=== PATIENT | female | born 1985 | race Asian ===

== ENCOUNTER 2020-05-22 10:10 | Emergency (ER) | payer OTHER, SELFPAY ==
[2020-05-22] VITALS (9 sets, daily range): BP systolic 101–116; BP diastolic 56–69; PULSE 55–68; RESP 16; TEMP 36.4; O2SAT 93–100; BMI 30.9
[2020-05-22] MEDS: ONDANSETRON 4 MG/2 ML INJ IV (10:46)
--- NOTE | 2020-05-22 10:55 | PC.NURSE ---
Patient reports severe dizziness with any movement of head and eyes. Reports heaviness on right side of head with ringing in right ear. Reports decrease hearing in right ear. Has had intermittent dizziness since march.
[2020-05-22] MEDS: SODIUM CHLORIDE 0.9% 1,000 ML 1000 ML IV (11:02)
--- NOTE | 2020-05-22 11:02 | ED_ITS ---
HPI - Nausea/Vomiting/Diarrhea General Chief complaint: Nausea/Vomiting/Diarrhea Stated complaint: Nausea/Vomiting Time Seen by Provider: 05/22/20 10:49 Source: patient and EMS Mode of arrival: Ambulatory History of Present Illness HPI Narrative: Patient complains of episodic right-sided heaviness and dizziness with vomiting and decreased hearing on the right side since April 15 status [place] or 4 episodes. Had another 1 today. Headache off and on since the surgery. Patient denies any medical problems heart attack stroke diabetes. No migraine headaches. No allergies medications. Has not seen a specialist for this right side head heaviness. Denies any weakness or numbness to the body. No slurred speech or facial droop. Patient states he has had more stress recently Related Data Previous Rx's Medication Instructions Recorded meclizine 25 mg PO TID PRN #20 tab 05/22/20 ondansetron 4 mg PO Q6H PRN #10 tab 05/22/20 Allergies Allergy/AdvReac Type Severity Reaction Status Date / Time No Known Drug Allergies Allergy Verified 05/22/20 10:17 Review of Systems Review of Systems Narrative: GENERAL: Denies chills, fatigue, malaise, fever, sweats. HEENT: Denies sinus pain, ear pain, sore throat, difficulty swallowing, dizziness. RESPIRATORY: Denies dyspnea, cough, wheezing, hemoptysis, sputum. CARDIOVASCULAR: Denies chest pain, palpitations, orthopnea, edema, GASTROINTESTINAL: Denies abdominal pain, diarrhea, constipation, melena. Has nausea and vomiting : Denies dysuria, frequency, incontinence, hematuria, urinary retention. MUSCULOSKELETAL: denies weakness, joint pain, or bony pain SKIN: Denies rash, skin lesions, or other NEUROLOGIC: Denies weakness, numbness, change in speech, confusion, seizures, incoordination. Has right-sided head pressure and decreased right-sided hearing PSYCHIATRIC: No concerning psychosocial issues. ROS Unobtainable: All systems reviewed & are unremarkable except as noted in HPI and below Patient History Social History Smoking Status: Never smoker Smoking Status: Never smoker Substance Use Type: does not use Exam Narrative Exam Narrative: GENERAL: patient appears stated age. Well-nourished, well-developed patient, in no distress, not toxic HEAD: Atraumatic. Normocephalic. EYES: Pupils equal round and reactive. Extraocular motions intact. No scleral icterus. No injection or drainage. ENT: Nose without bleeding, purulent drainage. Throat without erythema, tonsillar hypertrophy or exudate. Airway patent. TMs are clear. No effusion no erythema no discharge. No perforation NECK: Trachea midline. Non tender CARDIOVASCULAR: Regular rate and rhythm without murmurs, gallops, or rubs. RESPIRATORY: Clear to auscultation. Breath sounds equal bilaterally. No wheezes, rales, or rhonchi. GASTROINTESTINAL: Abdomen soft, non-tender, nondistended. EXTREMITIES: No edema or joint tenderness. BACK: Nontender without deformity or crepitance. No flank tenderness. NEURO: AOx4.. 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 Hearing intact equally left and right side isolated ears with hearing 99 and finger rubbing SKIN: No rash or erythema of visible areas PSYCH: Not anxious, is cooperative Initial Vital Signs Initial Vital Signs: Vital Signs Temperature 97.6 F 05/22/20 10:18 Pulse Rate 66 05/22/20 10:18 Respiratory Rate 16 05/22/20 10:18 Blood Pressure 113/56 L 05/22/20 10:18 Pulse Oximetry 95 05/22/20 10:18 Course Course Course Narrative: Patient has improved with IV fluids and nausea medication and meclizine. at bedside. They desire discharge home Orders Ordered: ED Orders 05/22/20 10:14 Complete Blood Count AUTO DIFF Stat Comprehensive Metabolic Panel Stat 05/22/20 11:08 CT head/brain wo con Stat 05/22/20 13:53 CT angio head and neck Stat Discontinued Medications Sodium Chloride (Normal Saline 0.9%) 1,000 mls @ 1,000 mls/hr IV BOLUS ONE Stop: 05/22/20 11:57 Last Infusion: 05/22/20 12:15 Dose: 0 mls/hr Documented by: Admin: 05/22/20 11:02 Dose: 1,000 mls/hr Documented by: RMARTIN Ketorolac Tromethamine (Toradol) 15 mg IV NOW ONE Stop: 05/22/20 14:53 Last Admin: 05/22/20 14:59 Dose: Not Given Documented by: KBROTEM Meclizine HCl (Antivert) 25 mg PO NOW ONE Stop: 05/22/20 12:50 Last Admin: 05/22/20 12:54 Dose: 25 mg Documented by: KACY Ondansetron HCl (Zofran) 4 mg IV NOW ONE Stop: 05/22/20 10:20 Last Admin: 05/22/20 10:46 Dose: 4 mg Documented by: KACY Reevaluation(s) Reevaluation #1: at bedside now. Patient feels much better after Zofran IV fluids and meclizine. Ambulating in hallway much better and feels much better. No dizziness no nausea or vomiting. Still has heaviness on right-sided head sensation. CT scan angiogram of the head and neck are ordered Time: 13:49 Reevaluation #2: Patient does not want oral detailed her headache/head pressure Time: 15:03 Vital Signs Vital signs: Vital Signs - 8 hr 05/22/20 11:30 05/22/20 12:08 05/22/20 12:30 Pulse Rate 56 L 56 L 58 L Respiratory Rate 16 16 Blood Pressure 109/68 109/64 108/65 Pulse Oximetry 98 100 99 05/22/20 13:00 05/22/20 13:30 05/22/20 14:00 Pulse Rate 67 55 L 61 Respiratory Rate Blood Pressure Pulse Oximetry 93 97 98 05/22/20 15:03 Pulse Rate 68 Respiratory Rate Blood Pressure 116/69 Pulse Oximetry 100 MDM - Nausea/Vomiting/Diarrhea Differential Diagnosis Differential diagnosis: Likely other (Tension headache/vertigo) Lab Data Attestation: I reviewed the patient's lab results. Result diagrams: 05/22/20 10:14 05/22/20 10:14 Labs: Lab Results 05/22/20 05/22/20 Range/Units 10:14 10:14 WBC 7.7 (4.5-11.0) X10^3/uL RBC 4.22 (4.0-5.2) X10^6/uL Hgb 12.4 (12.0-16.0) g/dL Hct 37.4 (36-46) % MCV 88.6 (80-100) fL MCH 29.5 (26-34) PG MCHC 33.3 (30-36) % RDW 13.7 (11.6-14.8) % Plt Count 263 (150-400) X10^3/uL Neut % (Auto) 66.6 (50-75) % Lymph % (Auto) 26.1 (25-40) % [place] % (Auto) 6.0 (3-14) % Eos % (Auto) 1.0 L (2-4) % Baso % (Auto) 0.3 (0-2) % Neut # (Auto) 5100 (4867-6898) /uL Lymph # (Auto) 2000 (7022-8103) /uL [place] # (Auto) 500 (0-900) /uL Eos # (Auto) 100 (0-450) /uL Baso # (Auto) 0 (0-100) /uL Sodium 136 L (137-145) mmol/L Potassium 4.5 (3.4-5.1) mmol/L Chloride 106 (98-107) mmol/L Carbon Dioxide 22 (22-32) mmol/L BUN 15 (7-17) mg/dL Creatinine 0.66 (0.52-1.04) mg/dL Estimated GFR > 60.0 (>60) mL/min BUN/Creatinine Ratio 22.7 H (6-22) Glucose 107 H (70-100) mg/dL Calcium 9.4 (8.4-10.2) mg/dL Total Bilirubin 0.7 (0.2-1.3) mg/dL AST 45 H (14-36) IU/L ALT 18 (<35) IU/L Alkaline Phosphatase 67 (38-126) U/L Total Protein 7.8 (6.3-8.2) g/dL Albumin 4.4 (3.5-5.0) g/dL Globulin 3.4 (1.7-4.1) g/dL Albumin/Globulin Ratio 1.3 (1.0-2.8) Point of Care Testing Test Results Negative Urine Dip Bedside Urine Glucose Negative Bedside Urine Bilirubin - Negative Bedside Urine Ketone - Negative Urine Specific [place] 1.020 Bedside Urine Occult Blood +++ Bedside Urine pH 6.5 Bedside Urine Protein + 30 Bedside Urine Urobilinogen - Negative Bedside Urine Nitrite - Negative Bedside Urine Leukocytes - Negative Esterase Imaging Data CT scan - head: Radiologist's Impression: [address] [address] [address] Scan Report Signed Patient: Roberth Casper#: [id number] : 1985Acct:[id number] Age/Sex: 34 / FDate of Service: 05/22/20 Loc: ED Accession Number: [id number] Procedure: CT head/brain wo con Ordering Provider: Joaquin Goel MD PROCEDURE: CT HEAD/BRAIN WO CON INDICATIONS: Dizzy/vomiting TECHNIQUE: Noncontrast 4.5 mm thick angled axial sections acquired from the foramen magnum to the vertex, with coronal and sagittal reformats. For radiation dose reduction, the following was used: automated exposure control, adjustment of mA and/or kV according to patient size. COMPARISON: None. FINDINGS: Image quality: Excellent. CSF spaces: Basal cisterns are patent. No extra-axial fluid collections. Andrés tricles are normal in size and shape. Brain: No midline shift. No intracranial masses or hemorrhage. Cheng-white matter interface is normal. Skull and face: Calvarium and visualized facial bones are intact, without suspicious lesions. Sinuses: Visualized sinuses and mastoids are clear. IMPRESSION: No CT evidence of acute intracranial pathology. Dictated by: Charly Casper M.D. on 05/22/2020 at 11:24 Approved by: Charly Casper M.D. on 05/22/2020 at 11:24 CTA head and neck: Radiologist's Impression: [address] [address] [address] Scan Report Signed Patient: Roberth Casper#: [id number] : 1985Acct:[id number] Age/Sex: 34 / FDate of Service: 05/22/20 Loc: ED Accession Number: [id number] Procedure: CT angio head and neck Ordering Provider: Joaquin Goel MD PROCEDURE: CT ANGIO HEAD AND NECK INDICATIONS: Right-sided head pain/dizzy TECHNIQUE: Pre-contrast 4.5 mm thick sections acquired from the foramen magnum to the vertex. After the administration of intravenous contrast, 1 mm thick sections acquired from the aortic arch through the [place] of [place]. Post-contrast 4.5 mm thick sections then re- acquired from the foramen magnum to the vertex. 3-dimensional ldrhhrz-slktjspsi-umceyhhlpg (MIP) and/or volume rendering reformats were acquired of the central intracranial vasculature and neck separately. COMPARISON: [facility], CT, CT HEAD/BRAIN WO CON, 05/22/2020, 10:57. FINDINGS: Image quality: Excellent. BRAIN: CSF spaces: Ventricles are normal in size and shape. Basal cisterns are patent. No extra-axial fluid collections. Brain: No midline shift. No intracranial bleeds or masses. Cheng-white matter interface appears intact. Skull and face: Calvarium and facial bones appear intact, without suspicious l esions. Orbits appear normal. Sinuses: Sinuses and mastoids are clear. HEAD CT ANGIOGRAPHY: Anterior circulation: Intracranial internal carotid arteries are normal in size and flow. The flow within the paired anterior cerebral arteries is normal and symmetric. The flow within the middle cerebral arteries is normal and symmetric. The anterior communicating artery is seen. No aneurysms are seen. Posterior circulation: Visualized portions of the vertebral arteries demonstrate normal caliber, and join to form a normal appearing basilar artery. Flow within the posterior cerebral arteries is normal and symmetric. No aneurysms are seen. Dural sinuses demonstrate normal postcontrast enhancement. NECK CT ANGIOGRAPHY: Carotid system: The great vessels demonstrate a conventional anatomy as they arise from the aortic arch. The origins of the common carotid arteries appear patent. The common carotid arteries demonstrate normal caliber and courses. The bifurcation regio ns are both widely patent. The internal carotid arteries demonstrate normal calibers and courses. Posterior circulation: The origins of the vertebral arteries both appear widely patent. The more superior extracranial portions of both vertebral arteries also demonstrate normal courses and calibers. They join to form a normal appearing basilar artery. Soft tissues: Visualized neck soft tissues demonstrate no suspicious abnormalities. Bones: No suspicious bony lesions. Visualized cervical spine appears normally aligned. IMPRESSION: 1. No acute intracranial disease process. 2. No large vessel occlusion, vascular stenosis, vascular dissection or aneurysm. Any quantitative measurements of stenosis were performed using NASCET criteria. Dictated by: Zeny Aguilera MD, PhD on 05/22/2020 at 14:24 Approved by: Zeny Aguilera MD, PhD on 05/22/2020 at 14:35 MDM Narrative Medical decision making narrative: Appropriate for discharge home. Ongoing issue since April 15, 2020. Is episodic and not constant. Will need ENT evaluation. Gave patient referral to Dr. Rodriguez. Possible cluster headache/tension headache given recent stressors Discharge Plan Departure Patient Disposition: Home Clinical Impression: Dizziness Headache Qualifiers: Headache type: unspecified Headache chronicity pattern: episodic headache Intractability: not intractable Qualified Code(s): R51 - Headache Discharge Date/Time: 05/22/20 15:13 Instructions: DI for Headache, DI for Dizziness-Nonvertigo Activity Restrictions/Additional Instructions: Return if worse. Call provided ear nose throat physician office today for office recheck within a week. Return if any questions concerns. Keep well hydrated. Prescriptions have been sent to your pharmacy Prescriptions: New meclizine 25 mg tablet 25 mg PO TID PRN (Reason: dizziness) Qty: 20 RF: 0 ondansetron 4 mg tablet,disintegrating 4 mg PO Q6H PRN (Reason: nausea and vomiting) Qty: 10 RF: 0 Referrals: Riki Rodriguez MD [Physician] - Stand Alone Forms: Work Release Note
--- NOTE | 2020-05-22 11:04 | PC.NURSE ---
right sided head pressure and dizziness
--- NOTE | 2020-05-22 11:08 | DI.CT.S_ITS ---
PROCEDURE: CT HEAD/BRAIN WO CON INDICATIONS: Dizzy/vomiting TECHNIQUE: Noncontrast 4.5 mm thick angled axial sections acquired from the foramen magnum to the vertex, with coronal and sagittal reformats. For radiation dose reduction, the following was used: automated exposure control, adjustment of mA and/or kV according to patient size. COMPARISON: None. FINDINGS: Image quality: Excellent. CSF spaces: Basal cisterns are patent. No extra-axial fluid collections. Ventricles are normal in size and shape. Brain: No midline shift. No intracranial masses or hemorrhage. Cheng-white matter interface is normal. Skull and face: Calvarium and visualized facial bones are intact, without suspicious lesions. Sinuses: Visualized sinuses and mastoids are clear. IMPRESSION: No CT evidence of acute intracranial pathology. Dictated by: Charly Casper M.D. on 05/22/2020 at 11:24 Approved by: Charly Casper M.D. on 05/22/2020 at 11:24
[2020-05-22 11:09] LABS: Add Manual Diff / Slide Review NO; Basophils Absolute Auto 0 /uL (0-100); Basophils Percent Auto 0.3 % (0-2); Eosinophils Absolute Auto 100 /uL (0-450); Hematocrit 37.4 % (36-46); Hemoglobin 12.4 g/dL (12.0-16.0); Lymphocytes Absolute Auto 2000 /uL (1100-4500); Lymphocytes Percent Auto 26.1 % (25-40); Mean Corpuscular HGB Conc 33.3 % (30-36); Mean Corpuscular Hemoglobin 29.5 PG (26-34); Mean Corpuscular Volume 88.6 fL (80-100); Monocytes Absolute Auto 500 /uL (0-900); Neutrophils Absolute Auto 5100 /uL (1500-7000); Neutrophils Percent Auto 66.6 % (50-75); Platelet Count 263 X10^3/uL (150-400); Red Blood Cell Count 4.22 X10^6/uL (4.0-5.2); Red Cell Distribution Width 13.7 % (11.6-14.8); White Blood Cell Count 7.7 X10^3/uL (4.5-11.0)
[2020-05-22 11:17] LABS: Alanine Aminotransferase 18 IU/L (<35); Albumin 4.4 g/dL (3.5-5.0); Albumin Globulin Ratio 1.3 (1.0-2.8); Alkaline Phosphatase 67 U/L (38-126); Aspartate Aminotransferase 45 IU/L (14-36); BUN Creatinine Ratio 22.7 (6-22); Bilirubin Total 0.7 mg/dL (0.2-1.3); Blood Urea Nitrogen 15 mg/dL (7-17); Calcium 9.4 mg/dL (8.4-10.2); Carbon Dioxide 22 mmol/L (22-32); Chloride 106 mmol/L (98-107); Estimated Glomerular Filt Rate > 60.0 mL/min (>60); Globulin 3.4 g/dL (1.7-4.1); Glucose 107 mg/dL (70-100); Sodium 136 mmol/L (137-145); Total Protein 7.8 g/dL (6.3-8.2)
[2020-05-22 11:22] LABS: HEMOLYSIS 143 (0-50)
[2020-05-22 11:23] LABS: Potassium 4.5 mmol/L (3.4-5.1)
[2020-05-22] MEDS: MECLIZINE HCL 12.5 MG TABLET 25 MG PO (12:54)
--- NOTE | 2020-05-22 12:56 | PC.NURSE ---
Patient reporting symptoms of pressure and nausea have slightly improved since admission.
--- NOTE | 2020-05-22 13:53 | DI.CT.S_ITS ---
PROCEDURE: CT ANGIO HEAD AND NECK INDICATIONS: Right-sided head pain/dizzy TECHNIQUE: Pre-contrast 4.5 mm thick sections acquired from the foramen magnum to the vertex. After the administration of intravenous contrast, 1 mm thick sections acquired from the aortic arch through the [place] of [place]. Post-contrast 4.5 mm thick sections then re-acquired from the foramen magnum to the vertex. 3-dimensional evfkfpq-qdgrfpswy-jbjkfwdzpc (MIP) and/or volume rendering reformats were acquired of the central intracranial vasculature and neck separately. COMPARISON: [facility], CT, CT HEAD/BRAIN WO CON, 05/22/2020, 10:57. FINDINGS: Image quality: Excellent. BRAIN: CSF spaces: Ventricles are normal in size and shape. Basal cisterns are patent. No extra-axial fluid collections. Brain: No midline shift. No intracranial bleeds or masses. Cheng-white matter interface appears intact. Skull and face: Calvarium and facial bones appear intact, without suspicious lesions. Orbits appear normal. Sinuses: Sinuses and mastoids are clear. HEAD CT ANGIOGRAPHY: Anterior circulation: Intracranial internal carotid arteries are normal in size and flow. The flow within the paired anterior cerebral arteries is normal and symmetric. The flow within the middle cerebral arteries is normal and symmetric. The anterior communicating artery is seen. No aneurysms are seen. Posterior circulation: Visualized portions of the vertebral arteries demonstrate normal caliber, and join to form a normal appearing basilar artery. Flow within the posterior cerebral arteries is normal and symmetric. No aneurysms are seen. Dural sinuses demonstrate normal postcontrast enhancement. NECK CT ANGIOGRAPHY: Carotid system: The great vessels demonstrate a conventional anatomy as they arise from the aortic arch. The origins of the common carotid arteries appear patent. The common carotid arteries demonstrate normal caliber and courses. The bifurcation regions are both widely patent. The internal carotid arteries demonstrate normal calibers and courses. Posterior circulation: The origins of the vertebral arteries both appear widely patent. The more superior extracranial portions of both vertebral arteries also demonstrate normal courses and calibers. They join to form a normal appearing basilar artery. Soft tissues: Visualized neck soft tissues demonstrate no suspicious abnormalities. Bones: No suspicious bony lesions. Visualized cervical spine appears normally aligned. IMPRESSION: 1. No acute intracranial disease process. 2. No large vessel occlusion, vascular stenosis, vascular dissection or aneurysm. Any quantitative measurements of stenosis were performed using NASCET criteria. Dictated by: Zeny Aguilera MD, PhD on 05/22/2020 at 14:24 Approved by: Zeny Aguilera MD, PhD on 05/22/2020 at 14:35
--- NOTE | 2020-05-22 13:55 | PC.NURSE ---
Dr. Goel requested ambulation trial. Patient tolerated fairly well. Denied dizziness or nausea. Reported continued pressure in right ear as well as discomfort in neck. Dr. Goel notified.
[2020-05-22] MEDS: KETOROLAC 60 MG/2 ML VIAL 15 MG IV (14:57)
== END 2020-05-22 15:13 | disposition home or self-care (01) ==
PROVIDERS: Emergency Provider Emergency Medicine
DX: R42 Dizziness and giddiness (principal); R51 Headache; R11.2 Nausea with vomiting, unspecified
CPT/HCPCS: 36415; 70450; 70496; 70498; 80053; 81003; 81025; 85025; 96361; 96374; 99284; J1885; J2405